=== PATIENT | male | born 1965 | race Hispanic/Latino ===

== ENCOUNTER 2020-12-06 12:37 | Inpatient (IN) | payer OTHER ==
[~2020-12-06] VITALS: Ht 160 cm; Wt 72.1 kg
[2020-12-06] MEDS ORDERED: TETANUS/DIPHTHERIA TOX ADULT 0.5 ML SYR IM ONE (13:30)
[2020-12-06 13:54] LABS: BASOPHILS % 0.3 % (0.0-1.0); EOSINOPHILS % 0.3 % (0.0-6.0); HEMATOCRIT 42.8 % (38.2-49.6); HEMOGLOBIN 14.4 g/dL (14.0-18.0); LYMPHOCYTES # (AUTO) 1.2 (1.0-3.2); LYMPHOCYTES % 18.8 % (18.0-39.1); MEAN CORPUSCULAR HEMOGLOBIN 30.3 pg (28-32); MEAN CORPUSCULAR HGB CONC 33.6 g/dL (31-35); MEAN CORPUSCULAR VOLUME 89.9 fL (81-99); MONOCYTES # (AUTO) 0.4 (0.2-0.8); MONOCYTES % 6.7 % (4.4-11.3); NEUTROPHILS # (AUTO) 4.6 (2.1-6.9); NEUTROPHILS % 73.6 % (38.7-80.0); PLATELET COUNT 280 x10e3/uL (140-360); RED BLOOD COUNT 4.76 x10e6/uL (4.3-5.7); RED CELL DISTRIBUTION WIDTH 12.3 % (11.7-14.4)
[2020-12-06 14:06] LABS: ALANINE AMINOTRANSFERASE 46 IU/L (0-55); ALBUMIN 4.7 g/dL (3.5-5.0); ALBUMIN/GLOBULIN RATIO 1.3 (0.8-2.0); ALKALINE PHOSPHATASE 75 IU/L (40-150); ANION GAP 17.2 mmol/L (8-16); BLOOD UREA NITROGEN 11 mg/dL (7-26); BUN/CREATININE RATIO 10 (6-25); CALCIUM 9.9 mg/dL (8.4-10.2); CARBON DIOXIDE 26 mmol/L (22-29); CHLORIDE 99 mmol/L (98-107); CREATININE, SERUM 1.14 mg/dL (0.72-1.25); EST GLOMERULAR FILTRATION RATE > 60 ML/MIN (60-); GLUCOSE 279 mg/dL (74-118); POTASSIUM 4.2 mmol/L (3.5-5.1); SODIUM 138 mmol/L (136-145)
[2020-12-06] MEDS ORDERED: ONDANSETRON HCL INJ 2MG/ML 2ML 2 MG/ML VIAL IV PRN (15:30)
[2020-12-06] MEDS ORDERED: MORPHINE SULFATE INJ 2 MG/ML SYR IV PRN (15:30)
[2020-12-06] MEDS ORDERED: BUPIVACAINE HCL 0.5% INJ 30 ML VIAL INJ ONE (15:51)
[2020-12-06] MEDS ORDERED: LIDOCAINE HCL 1% LOCAL INJ 20 ML VIAL ONE (15:51)
[2020-12-06] MEDS ORDERED: SODIUM CHLORIDE 0.9% 250ML 250 ML ONE (15:57)
[2020-12-06] MEDS ORDERED: LOSARTAN POTASS25 MG PO (19:37)
[2020-12-06] MEDS ORDERED: GEMFIBROZIL600 MG PO (19:37)
[2020-12-06] MEDS ORDERED: GLUCOPHAGE500 MG PO (19:37)
[2020-12-06] MEDS ORDERED: DEXTROSE 50% SYRINGE 50 ML IV PRN (19:45)
[2020-12-06] MEDS ORDERED: MORPHINE SULFATE INJ 4 MG/ML INJ 1ML ONE (20:07)
[2020-12-06] MEDS ORDERED: ONDANSETRON HCL INJ 2MG/ML 2ML 2 MG/ML VIAL ONE (20:07)
[2020-12-06] MEDS: LOSARTAN POTASSIUM 25 MG TAB PO SCH (20:08)
[2020-12-06] MEDS: MORPHINE SULFATE INJ 4 MG/ML INJ 1ML IV PRN (20:08)
[2020-12-06 20:21] VITALS: BP 145/97
[2020-12-06 21:46] VITALS: BP 145/97
[2020-12-06 22:10] VITALS: BP 145/97
[2020-12-06] MEDS: PIPER-TAZ 3.375 GM 50 ML IV SCH (22:51)
[2020-12-06] MEDS: INSULIN LISPRO 100 UNIT/1 ML 3ML VIAL SQ SCH (22:52)
[2020-12-06 23:54] VITALS: BP 139/82
[2020-12-07] MEDS: VANCOMYCIN 1GM/NS 250 ML 250 ML IV SCH ×2 (04:12→16:17)
[2020-12-07 05:26] VITALS: BP 132/82
[2020-12-07 05:36] LABS: BASOPHILS % 0.1 % (0.0-1.0); EOSINOPHILS % 0.2 % (0.0-6.0); HEMATOCRIT 40.5 % (38.2-49.6); HEMOGLOBIN 13.6 g/dL (14.0-18.0); LYMPHOCYTES # (AUTO) 1.9 (1.0-3.2); LYMPHOCYTES % 22.1 % (18.0-39.1); MEAN CORPUSCULAR HGB CONC 33.6 g/dL (31-35); MEAN CORPUSCULAR VOLUME 92.3 fL (81-99); MONOCYTES # (AUTO) 0.8 (0.2-0.8); MONOCYTES % 8.8 % (4.4-11.3); NEUTROPHILS % 68.3 % (38.7-80.0); PLATELET COUNT 226 x10e3/uL (140-360); RED BLOOD COUNT 4.39 x10e6/uL (4.3-5.7); RED CELL DISTRIBUTION WIDTH 12.1 % (11.7-14.4)
[2020-12-07] MEDS: PIPER-TAZ 3.375 GM 50 ML IV SCH (06:00)
[2020-12-07 06:19] LABS: ALANINE AMINOTRANSFERASE 38 IU/L (0-55); ALBUMIN 3.7 g/dL (3.5-5.0); ALBUMIN/GLOBULIN RATIO 1.2 (0.8-2.0); ALKALINE PHOSPHATASE 49 IU/L (40-150); ANION GAP 16.8 mmol/L (8-16); BLOOD UREA NITROGEN 13 mg/dL (7-26); BUN/CREATININE RATIO 13 (6-25); CALCIUM 8.4 mg/dL (8.4-10.2); CARBON DIOXIDE 21 mmol/L (22-29); CHLORIDE 103 mmol/L (98-107); CREATININE, SERUM 0.97 mg/dL (0.72-1.25); EST GLOMERULAR FILTRATION RATE > 60 ML/MIN (60-); GLUCOSE 186 mg/dL (74-118); POTASSIUM 3.8 mmol/L (3.5-5.1); SODIUM 137 mmol/L (136-145)
[2020-12-07 08:02] VITALS: BP 138/90
[2020-12-07] MEDS: GEMFIBROZIL 600 MG TAB PO SCH ×2 (08:26→17:22)
[2020-12-07] MEDS: LOSARTAN POTASSIUM 25 MG TAB PO SCH (08:27)
[2020-12-07] MEDS: INSULIN LISPRO 100 UNIT/1 ML 3ML VIAL SQ SCH ×4 (08:28→21:00)
[2020-12-07] MEDS: HYDROCODONE/APAP 5MG-325MG TAB PO PRN ×3 (11:20→23:21)
[2020-12-07 11:45] VITALS: BP 131/95
[2020-12-07] MEDS: PIPERACILLIN/TAZOBAC 3.375 GM in SODIUM CHLORIDE 0.9% 50ML 50 ML IV SCH ×2 (14:24→21:40)
[2020-12-07 16:00] VITALS: BP 128/84
[2020-12-07] MEDS ORDERED: DIPHENHYDRAMINE HCL 25 MG CAP PO PRN (16:45)
[2020-12-07] MEDS ORDERED: ONDANSETRON HCL INJ 2MG/ML 2ML 2 MG/ML VIAL IV PRN (16:45)
[2020-12-07] MEDS ORDERED: ACETAMINOPHEN 325 MG TAB PO PRN (16:45)
[2020-12-07] MEDS ORDERED: SIMETHICONE 80 MG CHEW PO PRN (16:45)
[2020-12-07] MEDS ORDERED: DEXTROSE 50% SYRINGE 50 ML IV PRN (16:45)
[2020-12-07] MEDS ORDERED: DOCUSATE SODIUM 100 MG CAP PO PRN (16:45)
[2020-12-07] MEDS ORDERED: BENZONATATE 100 MG CAP PO PRN (16:45)
[2020-12-07] MEDS ORDERED: POTASSIUM CHLORIDE 20 MEQ TAB CR PO PRN (16:45)
[2020-12-07 20:00] VITALS: BP 134/83
[2020-12-07 21:00] VITALS: BP 134/83
[2020-12-07] MEDS ORDERED: MELATONIN 5 MG TABLET PO PRN (21:00)
[2020-12-07] MEDS ORDERED: SODIUM CHLORIDE 0.9% 250ML 250 ML ONE (21:58)
[2020-12-08] VITALS (8 sets, daily range): BP systolic 142–156; BP diastolic 87–98
[2020-12-08] MEDS: VANCOMYCIN 1GM/NS 250 ML 250 ML IV SCH ×2 (03:36→16:33)
[2020-12-08] MEDS: MORPHINE SULFATE INJ 4 MG/ML INJ 1ML IV PRN ×3 (03:45→21:24)
[2020-12-08 06:25] LABS: BASOPHILS % 0.2 % (0.0-1.0); EOSINOPHILS # (AUTO) 0.1 (0.0-0.4); EOSINOPHILS % 0.8 % (0.0-6.0); HEMATOCRIT 42.2 % (38.2-49.6); LYMPHOCYTES # (AUTO) 2.1 (1.0-3.2); LYMPHOCYTES % 24.5 % (18.0-39.1); MEAN CORPUSCULAR HEMOGLOBIN 30.8 pg (28-32); MEAN CORPUSCULAR HGB CONC 33.2 g/dL (31-35); MEAN CORPUSCULAR VOLUME 92.7 fL (81-99); MONOCYTES # (AUTO) 0.6 (0.2-0.8); MONOCYTES % 6.9 % (4.4-11.3); NEUTROPHILS # (AUTO) 5.9 (2.1-6.9); NEUTROPHILS % 67.3 % (38.7-80.0); PLATELET COUNT 240 x10e3/uL (140-360); RED BLOOD COUNT 4.55 x10e6/uL (4.3-5.7); RED CELL DISTRIBUTION WIDTH 12.1 % (11.7-14.4)
[2020-12-08] MEDS: PIPERACILLIN/TAZOBAC 3.375 GM in SODIUM CHLORIDE 0.9% 50ML 50 ML IV SCH ×2 (06:33→16:33)
[2020-12-08 06:54] LABS: ALANINE AMINOTRANSFERASE 43 IU/L (0-55); ALBUMIN 3.8 g/dL (3.5-5.0); ALBUMIN/GLOBULIN RATIO 1.2 (0.8-2.0); ALKALINE PHOSPHATASE 53 IU/L (40-150); ANION GAP 15.2 mmol/L (8-16); BLOOD UREA NITROGEN 14 mg/dL (7-26); BUN/CREATININE RATIO 15 (6-25); CALCIUM 8.5 mg/dL (8.4-10.2); CARBON DIOXIDE 24 mmol/L (22-29); CHLORIDE 102 mmol/L (98-107); CREATININE, SERUM 0.95 mg/dL (0.72-1.25); EST GLOMERULAR FILTRATION RATE > 60 ML/MIN (60-); GLUCOSE 221 mg/dL (74-118); POTASSIUM 4.2 mmol/L (3.5-5.1); SODIUM 137 mmol/L (136-145)
[2020-12-08] MEDS: PANTOPRAZOLE SOD 40 MG TABEC PO SCH (07:30)
[2020-12-08] MEDS: INSULIN LISPRO 100 UNIT/1 ML 3ML VIAL SQ SCH ×4 (07:30→21:00)
[2020-12-08] MEDS: GEMFIBROZIL 600 MG TAB PO SCH ×2 (09:00→16:33)
[2020-12-08] MEDS: LOSARTAN POTASSIUM 25 MG TAB PO SCH (09:00)
[2020-12-08] MEDS ORDERED: FENTANYL CITRATE/PF 100MCG/2 ML INJ ONE (14:16)
[2020-12-09] VITALS: BP 150/91
[2020-12-09 04:00] VITALS: BP 143/95
[2020-12-09] MEDS: VANCOMYCIN 1GM/NS 250 ML 250 ML IV SCH (04:45)
[2020-12-09] MEDS: PIPERACILLIN/TAZOBAC 3.375 GM in SODIUM CHLORIDE 0.9% 50ML 50 ML IV SCH ×3 (06:45)
[2020-12-09 08:23] VITALS: BP 148/102
[2020-12-09] MEDS: PANTOPRAZOLE SOD 40 MG TABEC PO SCH (08:48)
[2020-12-09] MEDS: INSULIN LISPRO 100 UNIT/1 ML 3ML VIAL SQ SCH ×3 (08:49→16:30)
[2020-12-09] MEDS: LOSARTAN POTASSIUM 25 MG TAB PO SCH (08:50)
[2020-12-09] MEDS: GEMFIBROZIL 600 MG TAB PO SCH ×2 (08:53→16:40)
[2020-12-09] MEDS: HYDROCODONE/APAP 5MG-325MG TAB PO PRN (09:00)
[2020-12-09] MEDS ORDERED: ASPIRIN 325 MG TAB PO SCH (09:00)
[2020-12-09 09:28] VITALS: BP 148/102
[2020-12-09] MEDS ORDERED: CEFTRIAXONE SOD 2 GM/NS 100 ML 100 ML IV SCH (12:00)
[2020-12-09 12:33] VITALS: BP 151/102
[2020-12-09] MEDS ORDERED: ACETAMINOPHEN/CODEINE 300MG - 30MG TAB PO PRN (14:15)
[2020-12-09 16:53] VITALS: BP 155/102
[2020-12-09] MEDS ORDERED: LOSARTAN POTAS100 MG PO (18:03)
[2020-12-09] MEDS ORDERED: ASPIRIN325 MG PO (18:03)
[2020-12-09] MEDS ORDERED: KEFLEX125 MG/5 M PO (18:04)
[2020-12-09] MEDS ORDERED: TYLENOL # 31 EA PO (18:05)
[2020-12-09] MEDS ORDERED: LEVOFLOXACIN250 MG PO (18:47)
== END 2020-12-09 18:52 | disposition home or self-care (01) | DRG 909 ==
LOC: ER 13:00 → OR 15:55 → PACU V 15:56 → MED/SURG 18:36 → OBSVTOIN 12-07 13:07
PROVIDERS: ADMIT Internal Medicine; ATTEND Internal Medicine
PROC: 0JCK0ZZ Extirpation of Matter from Left Hand Subcutaneous Tissue and Fascia, Open Approach (ICD-10-PCS; 2020-12-06)
PROC: 0PBV0ZZ Excision of Left Finger Phalanx, Open Approach (ICD-10-PCS; principal; 2020-12-06 14:30)
PROC: 0PBV0ZZ Excision of Left Finger Phalanx, Open Approach (ICD-10-PCS; 2020-12-08)
PROC: 0JCK0ZZ Extirpation of Matter from Left Hand Subcutaneous Tissue and Fascia, Open Approach (ICD-10-PCS; 2020-12-08)
DX: T14.90XA Injury, unspecified, initial encounter (principal); M79.5 Residual foreign body in soft tissue; S69.82XA Other specified injuries of left wrist, hand and finger(s), initial encounter; W31.89XA Contact with other specified machinery, initial encounter; Y93.89 Activity, other specified; Y92.89 Other specified places as the place of occurrence of the external cause; Y99.0 Civilian activity done for income or pay; Y08.89XA Assault by other specified means, initial encounter; E11.22 Type 2 diabetes mellitus with diabetic chronic kidney disease; E87.8 Other disorders of electrolyte and fluid balance, not elsewhere classified; Z20.822 Contact with and (suspected) exposure to COVID-19
CPT/HCPCS: 36415; 80053; 80202; 82948; 85025; 87071; 87075; 87205; 90714; 99284; G0378; J0696; J2001; J2270; J2405; J2543; J3010; J3370; J7050; U0002

== ENCOUNTER → 2020-12-14 | Emergency (ER) | payer SELFPAY ==
[~2020-12-14] VITALS: Ht 160 cm; Wt 72.1 kg
[~2020-12-14] MED LIST: ASPIRIN325 MG PO; GEMFIBROZIL600 MG PO; GLUCOPHAGE500 MG PO; KEFLEX125 MG/5 M PO; LEVOFLOXACIN250 MG PO; LOSARTAN POTAS100 MG PO; LOSARTAN POTASS25 MG PO; TYLENOL # 31 EA PO
== END | disposition home or self-care (01) ==
LOC: ER 18:03
DX: G89.18 Other acute postprocedural pain (principal); I10 Essential (primary) hypertension; E11.9 Type 2 diabetes mellitus without complications; E78.5 Hyperlipidemia, unspecified
CPT/HCPCS: 99283

== ENCOUNTER 2020-12-19 17:39 | Inpatient (IN) | payer OTHER ==
[~2020-12-19] VITALS: Ht 160 cm; Wt 65.3 kg
[2020-12-19] MEDS ORDERED: MORPHINE SULFATE INJ 2 MG/ML SYR IV PRN (17:45)
[2020-12-19] MEDS ORDERED: ONDANSETRON HCL INJ 2MG/ML 2ML 2 MG/ML VIAL IV PRN (17:45)
[2020-12-19] MEDS ORDERED: MORPHINE SULFATE INJ 4 MG/ML INJ 1ML IV PRN (18:00)
[2020-12-19] MEDS: SODIUM CHLORIDE 0.9% 1000ML 1,000 ML IV SCH (18:27)
[2020-12-19] MEDS: PIPERACILLIN/TAZOBAC 3.375 GM in SODIUM CHLORIDE 0.9% 50ML 50 ML IV SCH (18:27)
[2020-12-19 19:14] LABS: BASOPHILS % 0.1 % (0.0-1.0); EOSINOPHILS % 0.3 % (0.0-6.0); HEMATOCRIT 38.9 % (38.2-49.6); LYMPHOCYTES # (AUTO) 1.9 (1.0-3.2); LYMPHOCYTES % 23.5 % (18.0-39.1); MEAN CORPUSCULAR HEMOGLOBIN 30.6 pg (28-32); MEAN CORPUSCULAR HGB CONC 33.4 g/dL (31-35); MEAN CORPUSCULAR VOLUME 91.5 fL (81-99); MONOCYTES # (AUTO) 0.5 (0.2-0.8); MONOCYTES % 5.8 % (4.4-11.3); NEUTROPHILS # (AUTO) 5.6 (2.1-6.9); PLATELET COUNT 370 x10e3/uL (140-360); RED BLOOD COUNT 4.25 x10e6/uL (4.3-5.7); RED CELL DISTRIBUTION WIDTH 12.2 % (11.7-14.4)
[2020-12-19 19:31] LABS: ALANINE AMINOTRANSFERASE 24 IU/L (0-55); ALBUMIN 3.8 g/dL (3.5-5.0); ALBUMIN/GLOBULIN RATIO 0.9 (0.8-2.0); ALKALINE PHOSPHATASE 68 IU/L (40-150); ANION GAP 16.1 mmol/L (8-16); BLOOD UREA NITROGEN 12 mg/dL (7-26); BUN/CREATININE RATIO 11 (6-25); CALCIUM 8.9 mg/dL (8.4-10.2); CARBON DIOXIDE 21 mmol/L (22-29); CHLORIDE 102 mmol/L (98-107); EST GLOMERULAR FILTRATION RATE > 60 ML/MIN (60-); GLUCOSE 127 mg/dL (74-118); POTASSIUM 4.1 mmol/L (3.5-5.1); SODIUM 135 mmol/L (136-145)
[2020-12-19 20:20] VITALS: BP 120/84
[2020-12-19 20:26] VITALS: BP 120/84
[2020-12-19 21:08] VITALS: BP 120/84
[2020-12-19] MEDS ORDERED: PIPERACILLIN/TAZOBAC 3.375 GM VIAL ONE (23:25)
[2020-12-19 23:48] VITALS: BP 123/73
[2020-12-20] MEDS: PIPERACILLIN/TAZOBAC 3.375 GM in SODIUM CHLORIDE 0.9% 50ML 50 ML IV SCH ×5 (00:09→20:43)
[2020-12-20] MEDS ORDERED: POTASSIUM CHLORIDE 20 MEQ TAB CR PO PRN (00:45)
[2020-12-20] MEDS ORDERED: SIMETHICONE 80 MG CHEW PO PRN (00:45)
[2020-12-20] MEDS ORDERED: HYDRALAZINE HCL 20 MG/ML VIAL IV PRN (00:45)
[2020-12-20] MEDS ORDERED: MELATONIN 5 MG TABLET PO PRN (00:45)
[2020-12-20] MEDS ORDERED: DEXTROSE 50% SYRINGE 50 ML IV PRN ×3 (00:45→12:15)
[2020-12-20] MEDS ORDERED: POLYETHYLENE GLYCOL 3350 17 GM PACK PO PRN (00:45)
[2020-12-20] MEDS ORDERED: ONDANSETRON HCL INJ 2MG/ML 2ML 2 MG/ML VIAL IV PRN (00:45)
[2020-12-20] MEDS ORDERED: BENZONATATE 100 MG CAP PO PRN (00:45)
[2020-12-20] MEDS ORDERED: DOCUSATE SODIUM 100 MG CAP PO PRN (00:45)
[2020-12-20] MEDS ORDERED: DIPHENHYDRAMINE HCL 25 MG CAP PO PRN (00:45)
[2020-12-20] MEDS ORDERED: ACETAMINOPHEN 325 MG TAB PO PRN (00:45)
[2020-12-20] MEDS: SODIUM CHLORIDE 0.9% 1000ML 1,000 ML IV SCH ×3 (03:28→21:28)
[2020-12-20 04:00] VITALS: BP 135/79
[2020-12-20 05:20] LABS: BASOPHILS % 0.2 % (0.0-1.0); EOSINOPHILS # (AUTO) 0.1 (0.0-0.4); HEMATOCRIT 35.5 % (38.2-49.6); LYMPHOCYTES % 33.1 % (18.0-39.1); MEAN CORPUSCULAR HEMOGLOBIN 31.2 pg (28-32); MEAN CORPUSCULAR HGB CONC 33.8 g/dL (31-35); MEAN CORPUSCULAR VOLUME 92.2 fL (81-99); MONOCYTES # (AUTO) 0.5 (0.2-0.8); MONOCYTES % 8.1 % (4.4-11.3); NEUTROPHILS # (AUTO) 3.5 (2.1-6.9); NEUTROPHILS % 57.4 % (38.7-80.0); PLATELET COUNT 297 x10e3/uL (140-360); RED BLOOD COUNT 3.85 x10e6/uL (4.3-5.7); RED CELL DISTRIBUTION WIDTH 12.1 % (11.7-14.4)
[2020-12-20 05:55] LABS: ALANINE AMINOTRANSFERASE 18 IU/L (0-55); ALBUMIN/GLOBULIN RATIO 0.9 (0.8-2.0); ALKALINE PHOSPHATASE 58 IU/L (40-150); ANION GAP 10.6 mmol/L (8-16); BLOOD UREA NITROGEN 12 mg/dL (7-26); BUN/CREATININE RATIO 12 (6-25); CALCIUM 7.9 mg/dL (8.4-10.2); CARBON DIOXIDE 23 mmol/L (22-29); CHLORIDE 105 mmol/L (98-107); CREATININE, SERUM 1.04 mg/dL (0.72-1.25); EST GLOMERULAR FILTRATION RATE > 60 ML/MIN (60-); GLUCOSE 203 mg/dL (74-118); POTASSIUM 3.6 mmol/L (3.5-5.1); SODIUM 135 mmol/L (136-145)
[2020-12-20 07:40] VITALS: BP 121/73
[2020-12-20 08:16] VITALS: BP 121/73
[2020-12-20] MEDS: PANTOPRAZOLE SOD 40 MG TABEC PO SCH (09:46)
[2020-12-20 11:24] VITALS: BP 116/73
[2020-12-20] MEDS ORDERED: GADOBENATE DIMEGLUMINE 0 ML IV ONE (12:49)
[2020-12-20] MEDS: HYDROCODONE/APAP 5MG-325MG TAB PO PRN ×2 (13:49→20:44)
[2020-12-20 15:11] VITALS: BP 139/81
[2020-12-20 20:00] VITALS: BP 141/77
[2020-12-21] VITALS (8 sets, daily range): BP systolic 118–161; BP diastolic 69–100
[2020-12-21] MEDS: SODIUM CHLORIDE 0.9% 1000ML 1,000 ML IV SCH ×3 (01:24→16:37)
[2020-12-21] MEDS: PIPERACILLIN/TAZOBAC 3.375 GM in SODIUM CHLORIDE 0.9% 50ML 50 ML IV SCH ×3 (05:12→20:30)
[2020-12-21] MEDS: PANTOPRAZOLE SOD 40 MG TABEC PO SCH (07:30)
[2020-12-21] MEDS ORDERED: HYDROMORPHONE 1MG/1ML INJ ONE (09:16)
[2020-12-21] MEDS ORDERED: FENTANYL CITRATE/PF 100MCG/2 ML INJ ONE (13:25)
[2020-12-21] MEDS ORDERED: MIDAZOLAM HCL 2 MG/2 ML VIAL ONE (13:25)
[2020-12-21] MEDS ORDERED: PROPOFOL IV EMULSION 10 MG/ML 20 ML VIAL ONE (16:59)
[2020-12-21] MEDS ORDERED: ONDANSETRON HCL INJ 2MG/ML 2ML 2 MG/ML VIAL ONE (16:59)
[2020-12-21] MEDS ORDERED: SEVOFLURANE INHAL SOLN 250 ML PEN BTL ONE (16:59)
[2020-12-21] MEDS ORDERED: KETOROLAC TROMETHAMINE 30 MG/ML VIAL ONE (16:59)
[2020-12-21] MEDS ORDERED: DEXAMETHASONE SOD PHOS INJ 4 MG/ML VIAL ONE (16:59)
[2020-12-21] MEDS ORDERED: LIDOCAINE HCL 2% LOCAL INJ 5 ML SDV VIAL INJ ONE (16:59)
[2020-12-21] MEDS: HYDROCODONE/APAP 5MG-325MG TAB PO PRN (20:30)
[2020-12-22 01:03] VITALS: BP 115/74
[2020-12-22] MEDS: SODIUM CHLORIDE 0.9% 1000ML 1,000 ML IV SCH ×2 (02:01→09:45)
[2020-12-22] MEDS: PIPERACILLIN/TAZOBAC 3.375 GM in SODIUM CHLORIDE 0.9% 50ML 50 ML IV SCH ×2 (05:03→13:22)
[2020-12-22] MEDS: HYDROCODONE/APAP 5MG-325MG TAB PO PRN ×2 (05:03→17:37)
[2020-12-22 05:05] LABS: BASOPHILS % 0.2 % (0.0-1.0); EOSINOPHILS % 0.6 % (0.0-6.0); HEMOGLOBIN 11.4 g/dL (14.0-18.0); LYMPHOCYTES # (AUTO) 2.4 (1.0-3.2); LYMPHOCYTES % 37.8 % (18.0-39.1); MEAN CORPUSCULAR HEMOGLOBIN 30.6 pg (28-32); MEAN CORPUSCULAR HGB CONC 33.5 g/dL (31-35); MEAN CORPUSCULAR VOLUME 91.2 fL (81-99); MONOCYTES # (AUTO) 0.4 (0.2-0.8); MONOCYTES % 6.6 % (4.4-11.3); NEUTROPHILS # (AUTO) 3.4 (2.1-6.9); NEUTROPHILS % 54.5 % (38.7-80.0); PLATELET COUNT 305 x10e3/uL (140-360); RED BLOOD COUNT 3.73 x10e6/uL (4.3-5.7); RED CELL DISTRIBUTION WIDTH 11.9 % (11.7-14.4)
[2020-12-22 05:06] VITALS: BP 133/84
[2020-12-22 05:25] LABS: ANION GAP 11.5 mmol/L (8-16); BLOOD UREA NITROGEN 7 mg/dL (7-26); BUN/CREATININE RATIO 8 (6-25); CALCIUM 7.8 mg/dL (8.4-10.2); CARBON DIOXIDE 24 mmol/L (22-29); CHLORIDE 107 mmol/L (98-107); CREATININE, SERUM 0.84 mg/dL (0.72-1.25); EST GLOMERULAR FILTRATION RATE > 60 ML/MIN (60-); GLUCOSE 116 mg/dL (74-118); POTASSIUM 3.5 mmol/L (3.5-5.1); SODIUM 139 mmol/L (136-145)
[2020-12-22] MEDS: PANTOPRAZOLE SOD 40 MG TABEC PO SCH (07:30)
[2020-12-22 07:54] VITALS: BP 138/80
[2020-12-22 08:22] VITALS: BP 138/80
[2020-12-22 11:24] VITALS: BP 128/92
[2020-12-22] MEDS ORDERED: CIPRO500 MG PO (15:12)
[2020-12-22] MEDS ORDERED: DOXYCYCLINE HY100 MG PO (15:14)
[2020-12-22] MEDS ORDERED: TYLENOL # 31 EA PO (15:14)
[2020-12-22 15:25] VITALS: BP 127/88
[2020-12-22] MEDS ORDERED: ENOXAPARIN SOD INJ 40 MG/0.4 ML SYR SC SCH (17:00)
== END 2020-12-22 18:27 | disposition home or self-care (01) | DRG 906 ==
LOC: ER 17:42 → ERHOLD 17:45 → MED/SURG2 20:03
PROVIDERS: ADMIT Internal Medicine; ATTEND Internal Medicine
PROC: 0X6P0Z0 Detachment at Left Index Finger, Complete, Open Approach (ICD-10-PCS; principal; 2020-12-21 07:01)
DX: L76.82 Other postprocedural complications of skin and subcutaneous tissue (principal); E11.9 Type 2 diabetes mellitus without complications; I10 Essential (primary) hypertension; E78.5 Hyperlipidemia, unspecified; Z82.49 Family history of ischemic heart disease and other diseases of the circulatory system; Z83.3 Family history of diabetes mellitus; G47.00 Insomnia, unspecified; Z20.822 Contact with and (suspected) exposure to COVID-19; L03.012 Cellulitis of left finger; T81.40XA Infection following a procedure, unspecified, initial encounter
CPT/HCPCS: 36415; 80048; 80053; 82948; 85025; 87071; 87075; 87205; 88304; 88305; 88311; 99284; J1100; J1170; J1650; J1885; J2001; J2250; J2270; J2405; J2543; J3010; J7030; U0002